=== PATIENT | male | born 1960 | race African-American/Black ===

== ENCOUNTER 2017-05-14 02:00 | Emergency (ER) | payer OTHER ==
[~2017-05-14] VITALS: Ht 167.6 cm; Wt 81.6 kg
[2017-05-14] MEDS ORDERED: MISCELLANEOUS MED XX ONE (02:30)
[2017-05-14] MEDS ORDERED: CEPHALEXIN MONOHYDRATE 500 MG CAPSULE PO ONE (02:45)
[2017-05-14] MEDS ORDERED: PENICILLIN G BENZATHINE 2.4 MMU/4 ML DISP.SYRIN IM ONE (02:45)
[2017-05-14] MEDS ORDERED: CEPHALEXIN MONOHYDRATE 500 MG CAPSULE ONE (02:51)
--- NOTE | 2017-05-14 02:54 | NUR ---
Patient discharged to home in stable conditon. Written and verbal after care instructions given. Patient verbalizes understanding of instructions. WALKED OUT OF ER WITH NO DISTRESS NOTED
[2017-05-14 02:55] VITALS: BP 158/88
== END 2017-05-14 02:55 | disposition other institution (70) ==
LOC: ER 02:04
DX: K08.89 Other specified disorders of teeth and supporting structures (principal); F17.200 Nicotine dependence, unspecified, uncomplicated; K21.9 Gastro-esophageal reflux disease without esophagitis; J45.909 Unspecified asthma, uncomplicated
CPT/HCPCS: A4663